=== PATIENT | female | born 1940 ===

== ENCOUNTER 2017-01-19 19:38 | Emergency (ER) | payer MEDICARE ==
[~2017-01-19] VITALS: Ht 152.4 cm; Wt 47.6 kg
[2017-01-19] MEDS ORDERED: ACETAMINOPHEN ES 500 MG TABLET PO ONE (20:30)
--- NOTE | 2017-01-19 20:30 | NUR ---
Patient discharged to home in stable conditon. Written and verbal after care instructions given. Patient verbalizes understanding of instructions.
[2017-01-19] MEDS ORDERED: ACETAMINOPHEN ES 500 MG TABLET ONE (20:36)
--- NOTE | 2017-01-19 20:39 | NUR ---
Patient's family member being seen as a patient as well. COLT informed staff that while observing patient visiting this family member she would like to add an XRAY. Patient returned to computer charting system, orders received.
--- NOTE | 2017-01-19 23:04 | NUR ---
ASHLEYD performed additional MSE and tests, patient discharged again as documented.
== END 2017-01-19 20:33 | disposition home or self-care (01) ==
LOC: ER 19:38
DX: S79.821A Other specified injuries of right thigh, initial encounter (principal); F03.90 Unspecified dementia, unspecified severity, without behavioral disturbance, psychotic disturbance, mood disturbance, and anxiety; I10 Essential (primary) hypertension; E78.00 Pure hypercholesterolemia, unspecified; W10.8XXA Fall (on) (from) other stairs and steps, initial encounter; Y93.89 Activity, other specified; Y99.8 Other external cause status; Y92.098 Other place in other non-institutional residence as the place of occurrence of the external cause
CPT/HCPCS: 73502; 99284; A4663